=== PATIENT | male | born 1955 | race Caucasian/White ===

== ENCOUNTER → 2021-12-13 11:48 | Outpatient (CLI) | payer OTHER, SELFPAY ==
--- NOTE | ~2021-12-13 | XR_ITS ---
EXAMINATION: XR lumbar spine min 4V DATE: 12/13/2021 12:49 INDICATION: Low back pain TECHNIQUE: Anteroposterior, lateral, and bilateral oblique views of the lumbar spine, and cone-down l ateral view of the lumbosacral junction were obtained. COMPARISON: 03/09/2006 FINDINGS: There is no fracture, dislocation, or subluxation. The vertebral body heights are normal. T here is moderate loss of intervertebral disc space height at L4-5 and mild loss of intervertebral dis c space height throughout the remainder of the lumbar spine. Small degenerative osteophytes project f rom the anterior endplates of multiple vertebral bodies. There is mild to moderate facet osteoarthrit is of the lower lumbar spine. Calcified atherosclerosis is noted. Surgical clips in the right upper q uadrant are likely from prior cholecystectomy. IMPRESSION: 1. Mild to moderate lumbar spondylosis without acute findings. Reviewed, dictated and finalized at location L.
== END ==
PROVIDERS: PCP Internal Medicine Infectious Disease; Visit Provider Chiropractor
DX: M47.896 Other spondylosis, lumbar region (principal)
CPT/HCPCS: 72110

== ENCOUNTER 2024-02-15 12:30 | Outpatient (RCR) | payer MEDICARE, OTHER, SELFPAY ==
[2023-10-23 15:51] VITALS: BP 126/74; PULSE 86; RESP 16; O2SAT 94
[2023-10-23 16:10] VITALS: PULSE 86
== END 2024-02-15 23:59 | disposition home or self-care (01) ==
LOC: ANHCPREHAB 12:30
PROVIDERS: PCP Internal Medicine Infectious Disease; Visit Provider Internal Medicine Pulmonary Disease
DX: J44.9 Chronic obstructive pulmonary disease, unspecified (principal)
CPT/HCPCS: 94625

== ENCOUNTER 2024-03-14 12:30 | Outpatient (RCR) | payer MEDICARE, OTHER, SELFPAY ==
[2024-02-21 00:03] VITALS: BP 126/74; PULSE 86; RESP 16; O2SAT 94
== END 2024-03-14 13:29 | disposition home or self-care (01) ==
LOC: ANHCPREHAB 12:30
PROVIDERS: PCP Internal Medicine Infectious Disease; Visit Provider Internal Medicine Pulmonary Disease
DX: J44.9 Chronic obstructive pulmonary disease, unspecified (principal)
CPT/HCPCS: 94625